=== PATIENT | male | born 1965 | race Caucasian/White ===

== ENCOUNTER 2020-03-29 22:53 | Inpatient (IN) | payer MEDICAID ==
[~2020-03-29] VITALS: Ht 165.1 cm; Wt 61.2 kg
[~2020-03-29 22:53] MED LIST: ALFUZOSIN HCL10 MG PO; AMBEREN; CALCIUM CARBO1000 MG; CARAFATE 1 GM TA1 G1 PO; CELEBREX 200 M200 M1 PO; CIPRO500 MG PO; CLARITIN10 MG PO; COUMADIN6 MG; CRESTOR10 MG PO; FERROUS GLUCON325 M4; FLEXERIL PO; FLOMAX0.4 MG PO; FUROSEMIDE 20 M20 M1; GABAPENTIN100 MG; KETOROLAC 0.5% E5 ML OP; LANTUS100 UNIT/M SUBQ; LEVEMIR; LOPERAMIDE 2 MG2 M1 PO; MELATONIN1 MG PO; MELATONIN3 MG PO; MOBIC15 MG PO; MS CONTIN15 MG PO; NAPROSYN500 MG PO; NORCO 10-325 T1 EACH PO; NOVOLOG100 UNIT/1; NOVOLOG100 UNIT/1 SUBQ; PRED FORTE 1% EY5 M1 OP; PRILOSEC40 MG; REGLAN 10 MG TA10 MG PO; SYNTHROID150 MCG PO; THERA M PLUS T1 EAC2 PO; TIROSINT150 MCG PO; TOPROL XL50 MG; TRAZODONE HCL50 MG PO; TUMS PO; VITAMIN D1000 UNI1 PO; [UNRECOGNIZED DRUG - SUPPLY] TP
[2020-03-29 22:59] VITALS: BP 158/103
[2020-03-29] MEDS ORDERED: GABAPENTIN100 MG PO (23:02)
[2020-03-29 23:16] LABS: HEMATOCRIT 45.3 % (42.0-52.0); HEMOGLOBIN 14.7 gm/dL (14.0-18.0); MCH 33.7 pg (26.0-34.0); MCHC 32.6 g/dL (28.0-37.0); MCV 103.4 fL (80.0-100.0); MPV 6.8 fl. (7.2-11.1); NUCLEATED RBCS 0 /100WBC; PLATELET COUNT* 792 thou/uL (150-400); RBC 4.38 mil/uL (4.50-6.00); WBC 15.3 thou/uL (4.0-11.0)
[2020-03-29 23:24] LABS: CALCIUM 9.9 mg/dL (8.5-10.1); CREATININE 2.1 mg/dL (0.6-1.3); POTASSIUM 4.7 mmol/L (3.5-5.1)
[2020-03-29 23:25] LABS: PROTIME 9.9 Seconds (9.20-11.50)
[2020-03-29 23:31] LABS: ALBUMIN 3.2 g/dL (3.4-5.0); MAGNESIUM 2.1 mg/dL (1.8-2.4); TOTAL BILIRUBIN 0.6 mg/dL (<0.1-1.0); TOTAL PROTEIN 7.7 g/dL (6.4-8.2)
[2020-03-29 23:58] LABS: ABSOLUTE EOSINOPHILS 0.3 thou/uL (0.0-0.7); ABSOLUTE LYMPHOCYTES 4.1 thou/uL (0.8-5.3); ABSOLUTE MONOCYTES 0.5 thou/uL (0.0-1.2); ABSOLUTE NEUTROPHILS 10.4 thou/uL (1.6-8.1); ANISOCYTOSIS Occasional; CLUMPED PLTS FEW; PLATELET ESTIMATE INCREASED; TOXIC GRANULATION 2+
[2020-03-30] VITALS (22 sets, daily range): BP systolic 126–168; BP diastolic 72–103
--- NOTE | 2020-03-30 06:28 | NUR ---
PATIENT ARRIVED ON UNIT AT APPROX 0130. ALERT AND ORIENTED TIMES FOUR. ABLE TO AMBULATE TO THE BSC AND THEN TRANSFER TO BED. NO COMPLAINTS OF PAIN AT THIS TIME. IV PATENT TO FLUIDS. HEART RATE REMAINS TACHY BUT, LOWER THAN ADMISSION. BLOOD GLUCOSE STABILED AT THIS TIME. RN ASSESSMENTS COMPLETED DOCUMENTED
[2020-03-30 07:16] LABS: CALCIUM 9.1 mg/dL (8.5-10.1); CREATININE 1.8 mg/dL (0.6-1.3)
[2020-03-30 07:17] LABS: POTASSIUM 3.7 mmol/L (3.5-5.1)
[2020-03-30 07:19] LABS: ALBUMIN 2.9 g/dL (3.4-5.0); MAGNESIUM 1.7 mg/dL (1.8-2.4); PHOSPHORUS* 3.3 mg/dL (2.5-4.9)
[2020-03-30 07:53] LABS: CHOLESTEROL 211 mg/dL (<200); HDL CHOLESTEROL 39 mg/dL (>40); LDL CHOLESTEROL 119 mg/dL (<100); TC:HDL 5.4 Ratio (Not establshd); TRIGLYCERIDE 267 mg/dL (<150); VLDL 53 mg/dL (<40)
[2020-03-30 07:58] LABS: SERUM ASSESSMENT Clear
--- NOTE | 2020-03-30 09:26 | EKG ---
[place] [address] ELECTROCARDIOGRAM REPORT Name: IRVIN العلي Room: [address] ADM IN .R.#: [id number] Admission: 03/30/20 Attend Phys: Bentley Allen Discharge: Date of : 67 Date of Service: 03/29/20 2257 Report #: [id number] THIS REPORT FOR: //name// [facility] ED Test Date: 2020-03-29 Test Time: 22:57:45 Pat Name: IRVIN العلي Department: Room: [facility] Gender: M Sales Representative Consultant: BRIDGET : 1965 Requested By: Lluvia Overton Order Number: [id number] MD: Jong White Measurements Intervals [place] Rate: 101 P: 80 ME: 121 QRS: 97 QRSD: 134 T: 53 QT: 382 QTc: 496 Interpretive Statements Sinus tachycardia RBBB and LPFB ST elev, probable normal early repol pattern No previous ECG available for comparison Electronically Signed On 03-30-2020 9:26:21 CDT by Jong White [email or web address] <ELECTRONICALLY SIGNED> By: Jong White MD, [facility] 03/30/20 0926 2257 2257 Jong White MD, [facility] /EPI
[2020-03-30 10:14] LABS: ALBUMIN 2.7 g/dL (3.4-5.0); CALCIUM 8.7 mg/dL (8.5-10.1); CREATININE 1.7 mg/dL (0.6-1.3); MAGNESIUM 1.6 mg/dL (1.8-2.4); PHOSPHORUS* 3.4 mg/dL (2.5-4.9); POTASSIUM 3.7 mmol/L (3.5-5.1)
[2020-03-30 13:14] LABS: CALCIUM 8.4 mg/dL (8.5-10.1); POTASSIUM 4.2 mmol/L (3.5-5.1)
[2020-03-30 13:17] LABS: ALBUMIN 2.6 g/dL (3.4-5.0); MAGNESIUM 1.5 mg/dL (1.8-2.4); PHOSPHORUS* 2.7 mg/dL (2.5-4.9)
--- NOTE | 2020-03-30 14:05 | NUR ---
ICU rounds: Admitted with DKA, now off DKA protocol. Continues to have nausea. Pt resides at home with . Independent. No DME. No hx of HH or SNF. Goal is home at dc. CM left VM for Pt's to confirm hx. Awaiting call back.
[2020-03-30 16:46] LABS: CALCIUM 8.1 mg/dL (8.5-10.1); CREATININE 1.6 mg/dL (0.6-1.3); POTASSIUM 4.9 mmol/L (3.5-5.1)
[2020-03-30 16:49] LABS: ALBUMIN 2.5 g/dL (3.4-5.0); MAGNESIUM 1.5 mg/dL (1.8-2.4); PHOSPHORUS* 2.6 mg/dL (2.5-4.9)
--- NOTE | 2020-03-30 19:00 | NUR ---
RECEIVED REPORT FROM ROSELIA TRAN AND ASSUMED CARE
[2020-03-31] VITALS (7 sets, daily range): BP systolic 113–144; BP diastolic 73–93
[2020-03-31 03:48] LABS: ABSOLUTE BASOPHILS 0.2 thou/uL (0.0-0.2); ABSOLUTE EOSINOPHILS 0.1 thou/uL (0.0-0.7); ABSOLUTE LYMPHOCYTES 4.8 thou/uL (0.8-5.3); ABSOLUTE MONOCYTES 1.2 thou/uL (0.0-1.2); ABSOLUTE NEUTROPHILS 9.8 thou/uL (1.6-8.1); BASOPHILS 1.4 %; EOSINOPHILS 0.8 %; HEMATOCRIT 34.3 % (42.0-52.0); LYMPHOCYTES 29.8 %; MCH 33.2 pg (26.0-34.0); MCHC 34.1 g/dL (28.0-37.0); MONOCYTES 7.2 %; MPV 6.4 fl. (7.2-11.1); NUCLEATED RBCS 0 /100WBC; POLYS 60.8 %; RBC 3.52 mil/uL (4.50-6.00); RDW-CV 14.4 % (10.5-14.5); WBC 16.1 thou/uL (4.0-11.0)
[2020-03-31 04:00] LABS: HEMOGLOBIN 11.7 gm/dL (14.0-18.0); MCV 97.4 fL (80.0-100.0); PLATELET COUNT* 575 thou/uL (150-400)
[2020-03-31 04:05] LABS: ALBUMIN 2.5 g/dL (3.4-5.0); ALKALINE PHOSPHATASE 199 U/L (46-116); ANION GAP 10 mmol/L (7-16); BUN 20 mg/dL (7-18); CALCIUM 8.3 mg/dL (8.5-10.1); CHLORIDE 104 mmol/L (98-107); CO2 24 mmol/L (21-32); CREATININE 1.5 mg/dL (0.6-1.3); GLUCOSE 67 mg/dL (70-99); MAGNESIUM 1.8 mg/dL (1.8-2.4); PHOSPHORUS* 2.9 mg/dL (2.5-4.9); SGOT 28 U/L (15-37); SGPT 35 U/L (30-65); SODIUM 138 mmol/L (136-145); TOTAL BILIRUBIN 0.4 mg/dL (<0.1-1.0)
[2020-03-31 04:10] LABS: POTASSIUM 3.6 mmol/L (3.5-5.1)
--- NOTE | 2020-03-31 05:03 | NUR ---
GLUCOSE FROM AM LAB CAME BACK 67. PT ASYMPTOMATIC. GAVE HIM 4 OZ OF APPLE JUICE. WILL RECHECK AT 0600
--- NOTE | 2020-03-31 07:31 | NUR ---
SHIFT REPORT: PT STABLE LAST NIGHT, ONE C/O EPIGASTRIC PAIN TREATED WITH MYLANTA. PT GIVEN LANTUS LAST NIGHT ORDERED. BLOOD SUGAR ON AM LABS 67 WITH 4 OZ APPLE JUICE GIVEN. FS AT 0600 164. NEURONTIN NOT AVAILABLE FOR 0600 AND SWITCHING CLERK NOTIFIED. PT SLEPT INTERMITTENTLY LAST NIGHT. VSS. REPORT TO ONCOMING RN
--- NOTE | 2020-03-31 18:46 | NUR ---
ASSESSMENT CHARTED. VSS. NOT REALLY MOTIVATED TO GET UP AND MOVE AROUND. PAIN IN THE EPIGASTRIC REGION ON AND OFF THROUGHOUT THE DAY WELL GENERALIZED PAIN. MD NOTIFIED AND PRN PAIN MEDICATION AND TUMS ORDERED. PATIENT IS TOLERATING PO WELL WITHOUT ANY COMPLAINTS OF NAUSEA.
--- NOTE | 2020-03-31 22:02 | NUR ---
PATIENTS BLOOD SUGAR IS 97. GLARGINE INSULING 10 UNITS ARE ORDERED TO BE GIVEN AT HS. DR. BUCK CALLED AND NOTIFIED OF BLOOD SUGAR AND NURSE ASKED IF FELT IT WAS OK TO GIVE THE INSULIN AT THIS TIME D/T BLOOD SUGAR BEING 97. PER IT IS OK TO GIVE THE 10 UNITS OF GLARGINE INSULIN AT THIS TIME. NURSING TO CONTINUE MONITORING.
[2020-04-01 02:18] VITALS: BP 124/88
[2020-04-01 04:26] LABS: CALCIUM 7.8 mg/dL (8.5-10.1); CREATININE 1.7 mg/dL (0.6-1.3); POTASSIUM 3.9 mmol/L (3.5-5.1)
--- NOTE | 2020-04-01 07:00 | NUR ---
PATIENT ADMITTED TO ROOM 108 FROM THE ICU AT APPROXIMATELY 2030. VSS ON RA. REPORT GIVEN FROM ICU NURSE. ASSESSMENT CHARTED. MEDICATIONS GIVEN ORDERED AND CHARTED. IV IN RIGHT FOREARM-SL. IV IN LEFT FOREARM-SL. PATIENT INSTRUCTED TO USE CALL LIGHT WHEN NEEDING ASSISTANCE. HOURLY ROUNDS MADE. WILL CONTINUE WITH PLAN OF CARE AND NURSING TO MONITOR.
[2020-04-01] MEDS ORDERED: ADULT LOW DOSE81 MG PO (07:28)
[2020-04-01] MEDS ORDERED: OMEPRAZOLE40 MG PO (07:28)
[2020-04-01 08:10] VITALS: BP 131/84
[2020-04-01 10:29] VITALS: BP 131/84
--- NOTE | 2020-04-01 10:55 | NUR ---
PATIENT DISCHARGED FROM UNIT AT 1050. ALERT AND ORIENTED X 4. VITAL SIGNS STABLE ON ROOM AIR. UP WITH ASSISTANCE IN ROOM. DISCHARGE INSTRUCTIONS AND MEDICATION INFORMATION GIVEN TO PATIENT. LEFT WITH ALL BELONGINGS. PATIENT LEFT WITH BROTHER VIA CAR.
[2020-04-01 11:04] VITALS: BP 131/84
== END 2020-04-01 10:50 | disposition home or self-care (01) | DRG 637 ==
LOC: M.ERS 22:53 → M.ICU 03-30 00:37 → M.TBA-ER 03-30 00:37 → M.ICU 03-30 01:32 → M.ORTHSURG 03-31 20:35
PROVIDERS: Emergency Medicine; Internal Medicine; ADMIT Internal Medicine; ATTEND Internal Medicine
DX: E10.10 Type 1 diabetes mellitus with ketoacidosis without coma (principal); N17.0 Acute kidney failure with tubular necrosis; R65.10 Systemic inflammatory response syndrome (SIRS) of non-infectious origin without acute organ dysfunction; K21.0 Gastro-esophageal reflux disease with esophagitis; F32.9 Major depressive disorder, single episode, unspecified; J44.9 Chronic obstructive pulmonary disease, unspecified; E03.9 Hypothyroidism, unspecified; F03.90 Unspecified dementia, unspecified severity, without behavioral disturbance, psychotic disturbance, mood disturbance, and anxiety; F17.210 Nicotine dependence, cigarettes, uncomplicated; E10.40 Type 1 diabetes mellitus with diabetic neuropathy, unspecified; E10.22 Type 1 diabetes mellitus with diabetic chronic kidney disease; E10.51 Type 1 diabetes mellitus with diabetic peripheral angiopathy without gangrene; N18.3 Chronic kidney disease, stage 3 (moderate); I12.9 Hypertensive chronic kidney disease with stage 1 through stage 4 chronic kidney disease, or unspecified chronic kidney disease; Z79.899 Other long term (current) drug therapy; Z79.4 Long term (current) use of insulin; Z91.018 Allergy to other foods

== ENCOUNTER 2020-04-13 14:10 | Emergency (ER) | payer MEDICAID ==
[~2020-04-13] VITALS: Ht 167.6 cm; Wt 59.0 kg
[~2020-04-13 14:10] MED LIST changes: +ADULT LOW DOSE81 MG PO; +GABAPENTIN100 MG PO; +OMEPRAZOLE40 MG PO
[2020-04-13] MEDS ORDERED: VITAMIN B (14:25)
[2020-04-13 14:46] LABS: URINE BILIRUBIN NEGATIVE (Negative); URINE BLOOD NEGATIVE (Negative); URINE CLARITY CLEAR; URINE COLOR YELLOW; URINE GLUCOSE-RANDOM 1+ (Negative); URINE KETONES TRACE (Negative); URINE LEUKOCYTES-REFLEX NEGATIVE (Negative); URINE NITRITE-REFLEX NEGATIVE (Negative); URINE PROTEIN 2+ (Negative); URINE UROBILINOGEN 0.2 E.U./dl (0.2-1.0)
[2020-04-13 14:55] LABS: SQUAMOUS 0-3 Few /LPF (0-3); URINE WBC-REFLEX 6-15 Few /HPF (0-5)
[2020-04-13 14:56] LABS: BACTERIA-REFLEX 1-9 Few /HPF (None Seen); CRYSTALS None Seen /LPF (None Seen); HYALINE CASTS 4-10 Moderate /LPF (None Seen); URINE RBC 3-10 Few /HPF (0-2)
[2020-04-13 15:01] LABS: BE 1.3 mmol/L (-2 to +3); PO2 77.9 mmHg (75.0-100.0); pH 7.411 (7.340-7.450)
[2020-04-13 15:08] LABS: CALCIUM 8.8 mg/dL (8.5-10.1); CREATININE 1.5 mg/dL (0.6-1.3); POTASSIUM 4.1 mmol/L (3.5-5.1)
[2020-04-13 15:12] LABS: HEMATOCRIT 38.7 % (42.0-52.0); MCHC 33.5 g/dL (28.0-37.0); MCV 98.3 fL (80.0-100.0); MPV 6.9 fl. (7.2-11.1); NUCLEATED RBCS 0 /100WBC; PLATELET COUNT* 676 thou/uL (150-400); RBC 3.93 mil/uL (4.50-6.00); RDW-CV 14.8 % (10.5-14.5); WBC 17.9 thou/uL (4.0-11.0)
[2020-04-13 15:13] LABS: ALBUMIN 3.4 g/dL (3.4-5.0); TOTAL BILIRUBIN 0.2 mg/dL (<0.1-1.0)
[2020-04-13 15:46] LABS: PLATELET ESTIMATE INCREASED
[2020-04-13 15:47] LABS: ABSOLUTE BASOPHILS 0.5 thou/uL (0.0-0.2); ABSOLUTE EOSINOPHILS 0.2 thou/uL (0.0-0.7); ABSOLUTE LYMPHOCYTES 2.3 thou/uL (0.8-5.3); ABSOLUTE MONOCYTES 0.5 thou/uL (0.0-1.2); ABSOLUTE NEUTROPHILS 14.3 thou/uL (1.6-8.1); ANISOCYTOSIS 1+; POIKILOCYTOSIS 1+; POLYCHROMASIA Occasional
[2020-04-13] MEDS ORDERED: KEFLEX500 M1 PO (16:40)
[2020-04-13 16:54] VITALS: BP 118/68
== END 2020-04-13 16:57 | disposition home or self-care (01) ==
LOC: M.ERS 14:10
PROVIDERS: Emergency Medicine
DX: E11.65 Type 2 diabetes mellitus with hyperglycemia (principal); N39.0 Urinary tract infection, site not specified; I10 Essential (primary) hypertension; E03.9 Hypothyroidism, unspecified; K21.9 Gastro-esophageal reflux disease without esophagitis; J44.9 Chronic obstructive pulmonary disease, unspecified; F32.9 Major depressive disorder, single episode, unspecified; F17.210 Nicotine dependence, cigarettes, uncomplicated; Z79.4 Long term (current) use of insulin; Z86.2 Personal history of diseases of the blood and blood-forming organs and certain disorders involving the immune mechanism; Z86.718 Personal history of other venous thrombosis and embolism; Z91.018 Allergy to other foods

== ENCOUNTER 2020-11-20 08:42 | Inpatient (IN) | payer MEDICAID ==
[~2020-11-20] VITALS: Ht 167.6 cm; Wt 57.2 kg
--- NOTE | ~2020-11-20 | EMS ---
[address] [address] EMS Patient Care Report Name: IRVIN CRENSHAW [id number] Admission: 11/20/20 Attend Phys: Discharge: Date of : 67 Report #: [id number] THIS REPORT FOR: //name// Report Transmitted: 11/20/2020 08:34 EMS Care Summary [facility] [place] Incident [id number] @ 11/20/2020 07:51 Incident Location [address] [place] [address] Patient Irvin Crenshaw Male, 55 Years 1965 Patient Address [address] [place] [address] Patient History Endocrine Condition - Other,Hypothyroidism, unspecified,Gastro-Esophageal Reflux Disease (GERD),Hyperlipidemia, Patient Allergies Bee sting allergy, Patient Medications Lantus, Chief Complaint Diabetes related symptoms Disposition Transported No Lights/[place] Dispatch Reason Diabetic Problem Transported To [facility] Narrative [facility] unit 311 dispatched to above location in reference to diabetic problems. Upon arrival, patient is found sitting on couch. Patient airway is patent, breathing is of adequate depth, rate and quality. Circulation [address] [address] EMS Patient Care Report Name: IRVIN CRENSHAW Room: [facility]#: [id number] Admission: 11/20/20 Attend Phys: Discharge: Date of : 67 Report #: [id number] is self maintained. Patients skin is of normal color, temperature and condition appears dry. Patient is alert and oriented to person, place, time and event with a GCS of 15. Patient states that he just got out of the hospital a few days ago ([facility]) and that he doesn't want to go back there. Patient advises that he can't get his glucose levels under control. Patient also states that he had fallen two days ago and had hurt his rib. Patient complains of rib pain 7/10 on scale of 0-10 during inspiration, palpation and movement. Paitnes rib pain is located on right lateral side at 5th / 6th rib area. Patient request to be transported to [facility]. Patient is assisted from the couch to EMS stretcher. Patient is seecured in a position of comfort (low semi fowlers) via rails x 2 straps x 5. Patient is moved to ambulance, loaded and secured without incident. Patients vital signs are assessed as noted. Patient is placed on monitoring analyst showing a sinus rhythm / sinus tachycarida. Rhythm is regular. IV attempt x 2 (first in left AC, second in left anterior foreamrm) with 20g using aseptic technique without success. BGL is assessed as noted. Enroute to [facility] other history gathered as noted. Patient denies any alcohol or substance use. Patient does admit to being a cigarette smoker, however had "cut back" recently. Patient states that he does not have a primary asha physician and is not able to follow up with anyone. Patients vital signs repeated as noted. [facility] contacted via radio wtih report, no orders given. Santosh has no changes during transport. Upon arrival at [facility], patient is moved to ED room 9. EMS stretcher is lowered and patient sits on side of stretcher and stands with minimal assistance. Patient ambulates to ED bed and is placed in a position of comfort. Patient secured via rails x 2. Patient care is transferred to staff with verbal report to nurse and physician, along with nurses signature. End of report. Dennis Barrrea NRP. Initial Vitals @08:12SpO2: 94, @08:26SpO2: 95, @08:31SpO2: 96, @08:36SpO2: 96, @08:11 @08:12P: 99,R: 14,BP: 174/101, @08:26P: 95,R: 14,BP: 177/101, @08:12GCS: 15, @08:26GCS: 15, @08:04 @08:15Glucose: 549, Assessments @08:04MENTAL:SKIN:HEENT:LUNG SOUNDS:ABDOMEN:PELVIS//GI:EXTREMITIES:PULSE:NEURO: [place] [address] EMS Patient Care Report Name: IRVIN CRENSHAW Room: [facility]#: [id number] Admission: 11/20/20 Attend Phys: Discharge: Date of : 67 Report #: [id number] Diabetic Hyperglycemia Procedures @08:15 cc () Site: Antecubital-LeftResponse: UnchangedFailed@08:17 cc () Site: Forearm-LeftResponse: UnchangedFailed@08:113-Lead ECGResponse: UnchangedSucceeded Timeline 07:50,Call Received 07:50,Dispatch Notified 07:50,Psap Call 07:51,Dispatched 07:52,En Route 08:02,On Scene 08:04,At Patient 08:04,BP: / M,PULSE: ,RR: R,SPO2: Ox,ETCO2: ,BG: ,PAIN: ,GCS: , 08:11,3-Lead ECG,Response: UnchangedSucceeded, 08:11,BP: / M,PULSE: ,RR: R,SPO2: Ox,ETCO2: ,BG: ,PAIN: ,GCS: , 08:12,BP: / M,PULSE: ,RR: R,SPO2: 94 Ox,ETCO2: ,BG: ,PAIN: ,GCS: , 08:12,BP: 174/101 M,PULSE: 99,RR: 14 R,SPO2: Ox,ETCO2: ,BG: ,PAIN: ,GCS: , 08:12,BP: / M,PULSE: ,RR: R,SPO2: Ox,ETCO2: ,BG: ,PAIN: ,GCS: 15, 08:15, cc Site: Antecubital-Left,Response: UnchangedFailed, 08:15,BP: / M,PULSE: ,RR: R,SPO2: Ox,ETCO2: ,B,PAIN: ,GCS: , 08:17, cc Site: Forearm-Left,Response: UnchangedFailed, 08:19,Depart Scene 08:26,BP: / M,PULSE: ,RR: R,SPO2: 95 Ox,ETCO2: ,BG: ,PAIN: ,GCS: , 08:26,BP: 177/101 M,PULSE: 95,RR: 14 R,SPO2: Ox,ETCO2: ,BG: ,PAIN: ,GCS: , 08:26,BP: / M,PULSE: ,RR: R,SPO2: Ox,ETCO2: ,BG: ,PAIN: ,GCS: 15, 08:31,BP: / M,PULSE: ,RR: R,SPO2: 96 Ox,ETCO2: ,BG: ,PAIN: ,GCS: , 08:36,BP: / M,PULSE: ,RR: R,SPO2: 96 Ox,ETCO2: ,BG: ,PAIN: ,GCS: , 08:38,At Destination 08:50,Call Closed Disclaimer v1.1 Copyright 2020 [employer] This EMS Care Summary contains data elements from the applicable legal record (which may be displayed differently). It is designed to provide pertinent information for the following purposes: continuity of care, clinical quality, and state data reporting. The complete legal record is available to ED staff and administrators of the receiving hospital in [facility] Patient Tracker. All data is provided "as is."
[~2020-11-20 08:42] MED LIST changes: +KEFLEX500 M1 PO; +VITAMIN B
[2020-11-20 08:43] VITALS: BP 171/97
[2020-11-20] MEDS ORDERED: HYDROCODON-ACE1 EAC7 PO (08:47)
[2020-11-20 09:04] LABS: ABSOLUTE BASOPHILS 0.1 thou/uL (0.0-0.2); ABSOLUTE EOSINOPHILS 0.3 thou/uL (0.0-0.7); ABSOLUTE LYMPHOCYTES 3.1 thou/uL (0.8-5.3); ABSOLUTE MONOCYTES 0.7 thou/uL (0.0-1.2); ABSOLUTE NEUTROPHILS 9.3 thou/uL (1.6-8.1); BASOPHILS 0.5 %; EOSINOPHILS 2.5 %; HEMATOCRIT 33.4 % (42.0-52.0); HEMOGLOBIN 10.6 gm/dL (14.0-18.0); LYMPHOCYTES 22.7 %; MCH 31.1 pg (26.0-34.0); MCHC 31.9 g/dL (28.0-37.0); MCV 97.4 fL (80.0-100.0); MPV 6.6 fl. (7.2-11.1); NUCLEATED RBCS 0 /100WBC; PLATELET COUNT* 709 thou/uL (150-400); POLYS 69.3 %; RBC 3.42 mil/uL (4.50-6.00); RDW-CV 15.1 % (10.5-14.5); WBC 13.4 thou/uL (4.0-11.0)
[2020-11-20 09:10] LABS: BE 2.2 mmol/L (-2 to +3); PCO2 44.5 mmHg (35.0-45.0); PO2 63.5 mmHg (75.0-100.0); pH 7.405 (7.340-7.450)
[2020-11-20 09:24] LABS: ALBUMIN 2.9 g/dL (3.4-5.0); CALCIUM 9.4 mg/dL (8.5-10.1); CREATININE 1.6 mg/dL (0.6-1.3); MAGNESIUM 1.8 mg/dL (1.8-2.4); POTASSIUM 5.3 mmol/L (3.5-5.1); TOTAL BILIRUBIN 0.4 mg/dL (<0.1-1.0)
[2020-11-20 10:15] LABS: URINE BILIRUBIN NEGATIVE (Negative); URINE BLOOD NEGATIVE (Negative); URINE CLARITY CLEAR; URINE COLOR YELLOW; URINE GLUCOSE-RANDOM 3+ (Negative); URINE KETONES 1+ (Negative); URINE LEUKOCYTES NEGATIVE (Negative); URINE NITRITE NEGATIVE (Negative); URINE PROTEIN NEGATIVE (Negative); URINE UROBILINOGEN 0.2 E.U./dl (0.2-1.0)
[2020-11-20 12:27] LABS: CALCIUM 9.4 mg/dL (8.5-10.1); CREATININE 1.5 mg/dL (0.6-1.3); POTASSIUM 4.5 mmol/L (3.5-5.1)
[2020-11-20 12:32] LABS: ALBUMIN 2.9 g/dL (3.4-5.0); TOTAL BILIRUBIN 0.3 mg/dL (<0.1-1.0); TOTAL PROTEIN 7.1 g/dL (6.4-8.2)
[2020-11-20 13:50] VITALS: BP 133/82
[2020-11-20] MEDS ORDERED: SYNTHROID150 MCG PO (13:55)
[2020-11-20 14:30] VITALS: BP 136/88
[2020-11-20 16:57] VITALS: BP 127/69
[2020-11-20 20:30] VITALS: BP 126/86
[2020-11-21 08:00] VITALS: BP 170/102
[2020-11-21 15:33] VITALS: BP 113/65
[2020-11-21 20:24] VITALS: BP 138/78
[2020-11-22 08:22] VITALS: BP 175/98
[2020-11-22 09:04] LABS: HEMOGLOBIN 10.1 gm/dL (14.0-18.0); MCH 30.7 pg (26.0-34.0); MCHC 32.7 g/dL (28.0-37.0); MCV 93.8 fL (80.0-100.0); MPV 6.6 fl. (7.2-11.1); RBC 3.3 mil/uL (4.50-6.00); RDW-CV 14.7 % (10.5-14.5); WBC 24.4 thou/uL (4.0-11.0)
[2020-11-22] MEDS ORDERED: PHENERGAN 25 MG25 M1 PO (09:07)
[2020-11-22] MEDS ORDERED: DULCOLAX5 MG PO (09:07)
[2020-11-22] MEDS ORDERED: AZITHROMYCIN500 MG PO (09:11)
[2020-11-22 09:13] LABS: CALCIUM 8.9 mg/dL (8.5-10.1); CREATININE 1.2 mg/dL (0.6-1.3); POTASSIUM 4.1 mmol/L (3.5-5.1)
[2020-11-22] MEDS ORDERED: TYLENOL325 MG PO (09:14)
[2020-11-22 09:18] LABS: ALBUMIN 2.9 g/dL (3.4-5.0); TOTAL BILIRUBIN 0.1 mg/dL (<0.1-1.0); TOTAL PROTEIN 7.7 g/dL (6.4-8.2)
[2020-11-22] MEDS ORDERED: AUGMENTIN 875-1 EACH PO (09:33)
[2020-11-22 10:35] LABS: HEMATOCRIT 32.2 % (42.0-52.0); HEMOGLOBIN 10.2 gm/dL (14.0-18.0); MCHC 31.7 g/dL (28.0-37.0); MCV 94.7 fL (80.0-100.0); MPV 6.7 fl. (7.2-11.1); NUCLEATED RBCS 0 /100WBC; PLATELET COUNT* 783 thou/uL (150-400); RDW-CV 14.8 % (10.5-14.5); WBC 24.3 thou/uL (4.0-11.0)
[2020-11-22 10:58] LABS: ABSOLUTE LYMPHOCYTES 1.5 thou/uL (0.8-5.3); ABSOLUTE MONOCYTES 0.2 thou/uL (0.0-1.2); ABSOLUTE NEUTROPHILS 22.6 thou/uL (1.6-8.1); PLATELET ESTIMATE ADEQUATE
[2020-11-22 14:33] VITALS: BP 175/98
[2020-11-22 14:39] VITALS: BP 175/98
[2020-11-22] MEDS ORDERED: NORCO 10-325 T1 EACH PO ×3 (15:43→18:56)
[2020-11-23] MEDS ORDERED: NORCO 10-325 T1 EACH PO (06:43)
== END 2020-11-22 17:11 | disposition home or self-care (01) | DRG 637 ==
LOC: M.ERS 08:42 → M.TBA-ER 11:38 → M.ORTHSURG 12:23
PROVIDERS: Emergency Medicine; ADMIT Internal Medicine; ATTEND Internal Medicine
DX: E11.65 Type 2 diabetes mellitus with hyperglycemia (principal); E11.00 Type 2 diabetes mellitus with hyperosmolarity without nonketotic hyperglycemic-hyperosmolar coma (NKHHC); N17.0 Acute kidney failure with tubular necrosis; G93.41 Metabolic encephalopathy; F03.90 Unspecified dementia, unspecified severity, without behavioral disturbance, psychotic disturbance, mood disturbance, and anxiety; K21.9 Gastro-esophageal reflux disease without esophagitis; I10 Essential (primary) hypertension; J44.9 Chronic obstructive pulmonary disease, unspecified; E03.9 Hypothyroidism, unspecified; E11.40 Type 2 diabetes mellitus with diabetic neuropathy, unspecified; E11.51 Type 2 diabetes mellitus with diabetic peripheral angiopathy without gangrene; G89.29 Other chronic pain; E87.5 Hyperkalemia; F17.210 Nicotine dependence, cigarettes, uncomplicated; D72.829 Elevated white blood cell count, unspecified; R19.7 Diarrhea, unspecified; Z20.822 Contact with and (suspected) exposure to COVID-19; Z86.718 Personal history of other venous thrombosis and embolism